=== PATIENT | female | born 1960 | race Caucasian/White ===

== ENCOUNTER 2022-09-07 17:37 | Emergency (ER) | payer OTHER ==
[~2022-09-07] VITALS: Ht 167.6 cm; Wt 96.2 kg
[~2022-09-07 17:37] MED LIST: ALBU90OI6 INH; ALBU90OI61 INH; AMIT50 PO; INSLIS75I SC; INSULANI SC; LISI20 PO; LOVA20 PO; Mucinex600 MG PO; NAPR500 PO; Prednisone20 MG PO; QVAR7.3 G1 IH; Ventolin Soln3 ML INH
[2022-09-07 18:19] LABS: BASOPHILS ABSOLUTE AUTO 0.04 K/mm3 (0.00-0.23); BASOPHILS PERCENT AUTO 0 % (0-2); EOSINOPHILS ABSOLUTE AUTO 0.17 K/mm3 (0.00-0.68); EOSINOPHILS PERCENT AUTO 2 % (0-6); Hematocrit 37.8 % (33.0-51.0); IMMATURE GRAN ABSOLUTE AUTO 0.03 K/mm3 (0.00-0.10); IMMATURE GRAN PERCENT AUTO 0 % (0-1); LYMPHOCYTES ABSOLUTE AUTO 4.97 K/mm3 (0.84-5.20); LYMPHOCYTES PERCENT AUTO 45 % (21-46); MONOCYTES ABSOLUTE AUTO 0.79 K/mm3 (0.16-1.47); MONOCYTES PERCENT AUTO 7 % (4-13); Mean Corpuscular HGB 29.7 pg (26.0-34.0); Mean Corpuscular HGB Conc 34.4 g/dL (31.5-36.5); Mean Corpuscular Volume 86 fL (80-100); Mean Platelet Volume 10.5 fL (9.1-12.4); NEUTROPHILS ABSOLUTE AUTO 5.17 K/mm3 (1.96-9.15); NEUTROPHILS PERCENT AUTO 46 % (41-73); Platelet Count 306 K/mm3 (150-400); RDW Coefficient Variation 13.5 % (11.7-14.2); RDW Standard Deviation 42.4 fL (35.1-46.3); Red Blood Cell Count 4.38 M/mm3 (3.80-5.20); White Blood Cell Count 11.17 K/mm3 (4.00-11.30)
[2022-09-07 18:51] LABS: Albumin, Blood 3.5 g/dL (3.4-5.0); Bilirubin, Total 0.6 mg/dL (0.1-1.0); Bun/Creatinine Ratio 36.9 (12.0-20.0); Calcium, Blood 8.4 mg/dL (8.5-10.1); Creatinine, Blood 0.65 mg/dL (0.40-1.00); Globulin, Blood 3.4 g/dL (2.2-4.0); Potassium, Blood 3.7 mmol/L (3.5-5.5); Total Protein, Blood 6.9 g/dL (6.4-8.2)
[2022-09-07] MEDS ORDERED: JARDIANCE10 MG PO (20:06)
[2022-09-07] MEDS ORDERED: NITROGLYCERIN0.4 M3 SL (20:07)
[2022-09-07] MEDS ORDERED: NEURONTIN300 MG PO (20:08)
[2022-09-07] MEDS ORDERED: Prinivil10 MG PO (20:09)
[2022-09-07] MEDS ORDERED: LOW DOSE ASPIRI81 M1 PO (20:09)
[2022-09-07] MEDS ORDERED: TOPI50 PO (20:10)
[2022-09-07] MEDS ORDERED: MONT10T PO (20:10)
[2022-09-07] MEDS ORDERED: ATOR10 PO (20:11)
[2022-09-07] MEDS ORDERED: SEMGLEE (Y100 UNIT/1 (20:13)
[2022-09-07 22:30] VITALS: BP 132/82
== END 2022-09-07 23:00 | disposition home or self-care (01) ==
LOC: ER 17:37
PROVIDERS: Physician Assistant
DX: I20.9 Angina pectoris, unspecified (principal); I10 Essential (primary) hypertension; E78.5 Hyperlipidemia, unspecified; E11.9 Type 2 diabetes mellitus without complications; Z79.4 Long term (current) use of insulin; Z79.82 Long term (current) use of aspirin; Z79.899 Other long term (current) drug therapy; Z88.0 Allergy status to penicillin; Z88.1 Allergy status to other antibiotic agents; Z88.2 Allergy status to sulfonamides
CPT/HCPCS: 71046; 80053; 84484; 85025; 93005; 93010; 99285-25; A9270